=== PATIENT | female | born 1945 | race Caucasian/White ===

== ENCOUNTER 2021-11-25 11:54 | Emergency (ER) | payer MEDICARE, BC ==
[2021-11-25 13:15] LABS: BASO # 0.02 K/mm3 (0.02-0.10); EOS # 0.07 K/mm3 (0.04-0.40); EOS % 0.9 % (1.0-5.0); HEMATOCRIT 43.9 % (37.0-47.0); HEMOGLOBIN 14.5 g/dL (12.5-16.0); LYMPH# 1.64 K/mm3 (1.50-4.00); MEAN CELL VOLUME 91 fl (78-100); MEAN CORPUSCULAR HEMOGLOBIN 30 pg (27-31); MEAN CORPUSCULAR HGB CONC 33 g/dL (33-37); MEAN PLATELET VOLUME 9.2 fl (7.4-10.4); MONO # 0.92 K/mm3 (0.20-0.80); NEU # 4.76 K/mm3 (1.40-6.50); PLATELET COUNT 271 K/mm3 (130-400); RED BLOOD COUNT 4.82 M/mm3 (4.10-5.30); RED CELL DISTRIBUTION WIDTH 13.2 % (11.5-14.5); WHITE BLOOD COUNT 7.4 K/mm3 (4.8-10.8)
[2021-11-25 13:27] LABS: ALBUMIN 3.6 g/dL (3.4-4.8)
[2021-11-25 13:28] LABS: CALCIUM 9.6 mg/dL (8.3-10.5)
[2021-11-25 13:29] LABS: GLUCOSE 103 mg/dL (65-105); POTASSIUM 4.1 mmol/L (3.5-5.1); SODIUM 139 mmol/L (136-145); TOTAL PROTEIN 6.3 g/dL (6.2-8.1)
[2021-11-25 13:30] LABS: CARBON DIOXIDE 25 mmol/L (23-31)
[2021-11-25 13:31] LABS: TOTAL BILIRUBIN 0.4 mg/dL (0.2-1.2)
[2021-11-25 13:34] LABS: AST-SGOT 13 U/L (5-34)
[2021-11-25 13:36] LABS: ALT/SGPT 18 U/L (0-55)
[2021-11-25 13:46] LABS: TROPONIN-I < 0.030 ng/mL (<0.030)
[2021-11-25 14:33] VITALS: BP 109/78
[2021-11-25] MEDS ORDERED: FISH OIL1000 MG PO (20:02)
[2021-11-25] MEDS ORDERED: PANTOPRAZOLE SO40 MG PO (20:02)
[2021-11-25] MEDS ORDERED: NATURE'S BLE1000 MCG (20:02)
[2021-11-25] MEDS ORDERED: CALCIUM 600 MG-1 TAB PO (20:02)
[2021-11-25] MEDS ORDERED: NAPROXEN500 MG PO (20:02)
== END 2021-11-25 14:30 | disposition home or self-care (01) ==
LOC: ED 11:54
PROVIDERS: Physician Assistant
DX: K21.9 Gastro-esophageal reflux disease without esophagitis (principal); Z20.822 Contact with and (suspected) exposure to COVID-19

== ENCOUNTER 2022-07-13 11:11 | Outpatient (RCR) | payer MEDICARE, BC ==
[~2022-07-13 11:11] MED LIST: CALCIUM 600 MG-1 TAB PO; FISH OIL1000 MG PO; NAPROXEN500 MG PO; NATURE'S BLE1000 MCG; PANTOPRAZOLE SO40 MG PO
== END 2022-07-22 | disposition home or self-care (01) ==
LOC: PT
DX: Z96.652 Presence of left artificial knee joint (principal)

== ENCOUNTER 2022-11-24 08:00 | Outpatient (RCR) | payer MEDICARE, BC | END 2022-12-22 | disposition home or self-care (01) | LOC: PT | DX: Z96.651 Presence of right artificial knee joint (principal) ==

== ENCOUNTER 2022-12-29 08:00 | Outpatient (RCR) | payer MEDICARE, BC | END 2023-01-19 | disposition home or self-care (01) | LOC: PT | DX: Z96.651 Presence of right artificial knee joint (principal) ==

== ENCOUNTER → 2024-05-15 | Outpatient (CLI) | payer MEDICARE, BC | LOC: RAD 11:06 | DX: N20.2 Calculus of kidney with calculus of ureter (principal) ==